=== PATIENT | female | born 1945 | race Caucasian/White ===

== ENCOUNTER 2017-10-09 15:17 | Emergency (ER) | payer MEDICARE, MEDICAID ==
[~2017-10-09] VITALS: Ht 162.6 cm; Wt 50.0 kg
[2017-10-09] MEDS ORDERED: NITROGLYCERIN 0.4MG TABLET SL SL PRN (15:45)
[2017-10-09 16:26] LABS: CHLORIDE 107 mEq/L (98-107)
[2017-10-09 16:27] LABS: BASOPHILS % 0.9 % (0.0-2.0); EOSINOPHILS % 2.5 % (0.0-5.0); HEMATOCRIT. 36.2 % (36.0-48.0); HEMOGLOBIN. 12.1 g/dL (12.0-16.0); LYMPHOCYTES % 27.9 % (20.0-50.0); MEAN CORPUSCULAR HEMOGLOBIN 29.4 pg (28.0-32.0); MEAN CORPUSCULAR VOLUME 87.9 fL (81.0-99.0); MEAN PLATELET VOLUME 7.9 fl (7.4-10.4); MONOCYTES % 5.4 % (2.0-8.0); NEUTROPHILS % 63.3 % (40.0-76.0); PLATELET 222 x1000/uL (130-400); RED BLOOD CELL COUNT 4.12 mill/uL (4.2-5.4); RED CELL DISTRIBUTION WIDTH 14.9 % (11.6-14.6)
[2017-10-09] MEDS ORDERED: ACETAMINOPHEN WITH CODEINE 300/30MG TABLET PO ONE (16:30)
[2017-10-09] MEDS ORDERED: LORAZEPAM 1MG TABLET PO ONE (17:15)
[2017-10-09] MEDS ORDERED: HYDROCODONE/ACETAMINOPHEN 5/325MG TABLET PO ONE ×2 (17:45→19:15)
[2017-10-09 19:31] VITALS: BP 115/72
== END 2017-10-09 19:32 ==
LOC: ER 15:17 → CANBEDREQ 21:38
DX: R07.89 Other chest pain (principal); I20.0 Unstable angina; G40.909 Epilepsy, unspecified, not intractable, without status epilepticus; J44.9 Chronic obstructive pulmonary disease, unspecified; F17.200 Nicotine dependence, unspecified, uncomplicated; R00.1 Bradycardia, unspecified; Z88.5 Allergy status to narcotic agent; Z88.8 Allergy status to other drugs, medicaments and biological substances
CPT/HCPCS: 36415; 71045; 80053; 83880; 84484; 85025; 93005; 99285

== ENCOUNTER 2018-01-26 11:23 | Emergency (ER) | payer MEDICARE, MEDICAID ==
[~2018-01-26] VITALS: Ht 160 cm; Wt 60.0 kg
[2018-01-26] MEDS ORDERED: HYDROCODONE/ACETAMINOPHEN 5/325MG TABLET PO ONE (12:15)
[2018-01-26] MEDS ORDERED: NITROGLYCERIN OINT 1GM/INCH UDPKT TD ONE (12:15)
[2018-01-26 13:41] LABS: BASOPHILS % 1.1 % (0.0-2.0); EOSINOPHILS % 1.7 % (0.0-5.0); HEMATOCRIT. 36.3 % (36.0-48.0); HEMOGLOBIN. 12.4 g/dL (12.0-16.0); LYMPHOCYTES % 23.4 % (20.0-50.0); MEAN CORPUSCULAR VOLUME 90.7 fL (81.0-99.0); NEUTROPHILS % 68.8 % (40.0-76.0); PLATELET 218 x1000/uL (130-400); RED CELL DISTRIBUTION WIDTH 12.9 % (11.6-14.6)
[2018-01-26 13:47] LABS: CHLORIDE 108 mEq/L (98-107)
[2018-01-26 13:50] LABS: INR 1.1; PARTIAL THROMBOPLASTIN TIME 50.1 sec (23.4-31.0)
[2018-01-26] MEDS ORDERED: LORAZEPAM 2MG/ML CPJ IV ONE ×2 (15:45)
[2018-01-26 16:21] VITALS: BP 117/67
== END 2018-01-26 16:50 | disposition short-term general hospital (02) ==
LOC: ER 11:23 → CANBEDREQ 17:21
DX: R07.89 Other chest pain (principal); I11.9 Hypertensive heart disease without heart failure; J44.9 Chronic obstructive pulmonary disease, unspecified; G40.909 Epilepsy, unspecified, not intractable, without status epilepticus; E87.8 Other disorders of electrolyte and fluid balance, not elsewhere classified; Z88.5 Allergy status to narcotic agent
CPT/HCPCS: 36415; 71045; 80053; 83880; 84484; 85025; 85610; 85730; 93005; 96374; 96376; 99285; J2060

== ENCOUNTER 2018-04-29 13:48 | Inpatient (IN) | payer MEDICARE, MEDICAID ==
[~2018-04-29] VITALS: Ht 160 cm; Wt 49.9 kg
[2018-04-29 00:30] VITALS: BP 123/53
[2018-04-29] MEDS ORDERED: SODIUM CHLORIDE 0.9% 1,000 ML IV ONE (14:07)
[2018-04-29 14:51] LABS: CLARITY URINE CLEAR (CLEAR); COLOR URINE YELLOW (YELLOW); KETONES URINE NEGATIVE (NEGATIVE); LEUKOCYTE ESTERASE URINE 2+ (NEGATIVE); NITRITE URINE POSITIVE (NEGATIVE); OCCULT BLOOD URINE 1+ (NEGATIVE); PH URINE 7.5 (4.5-8.0); PROTEIN URINE NEGATIVE (NEGATIVE); SPECIFIC GRAVITY URINE 1.013 (1.005-1.030); UROBILINOGEN URINE 0.2 E.U./dL (0.2-1.0)
[2018-04-29 15:14] LABS: BASOPHILS % 0.8 % (0.0-2.0); HEMATOCRIT. 37.4 % (36.0-48.0); HEMOGLOBIN. 12.8 g/dL (12.0-16.0); LYMPHOCYTES % 22.3 % (20.0-50.0); MEAN CORPUSCULAR VOLUME 90.9 fL (81.0-99.0); MONOCYTES % 4.3 % (2.0-8.0); NEUTROPHILS % 70.6 % (40.0-76.0); PLATELET 172 x1000/uL (130-400); RED BLOOD CELL COUNT 4.12 mill/uL (4.2-5.4); RED CELL DISTRIBUTION WIDTH 13.5 % (11.6-14.6)
[2018-04-29 15:19] LABS: CHLORIDE 106 mEq/L (98-107)
[2018-04-29 15:23] LABS: ETHANOL BLOOD < 10 mg/dL
[2018-04-29 15:29] LABS: *AMPHETAMINES SCREEN URINE NEGATIVE (NEGATIVE); *BARBITURATES SCREEN URINE NEGATIVE (NEGATIVE); *BENZODIAZEPINES SCREEN URINE NEGATIVE (NEGATIVE); *COCAINE SCREEN URINE NEGATIVE (NEGATIVE)
[2018-04-29 15:30] LABS: CANNABINOID URINE SCREEN NEGATIVE (NEGATIVE); OPIATES URINE SCREEN PRESUMTIVE POSITIVE (NEGATIVE); PHENCYCLIDINE URINE SCREEN NEGATIVE (NEGATIVE)
[2018-04-29 15:32] LABS: METHADONE URINE SCREEN NEGATIVE (NEGATIVE)
[2018-04-29] MEDS ORDERED: HYDROCODONE/ACETAMINOPHEN 10/325MG TABLET PO PRN (20:00)
[2018-04-29] MEDS: HYDROCODONE/ACETAMINOPHEN 10/325MG TABLET PO PRN (23:38)
[2018-04-29] MEDS: LORAZEPAM 2MG/ML CPJ IV PRN (23:38)
[2018-04-30] VITALS (7 sets, daily range): BP systolic 85–119; BP diastolic 32–69
[2018-04-30] MEDS: LORAZEPAM 2MG/ML CPJ IV PRN ×4 (01:59→20:19)
[2018-04-30] MEDS: HYDROCODONE/ACETAMINOPHEN 10/325MG TABLET PO PRN ×4 (03:05→17:44)
[2018-04-30] MEDS ORDERED: MELA3CAP PO (03:48)
[2018-04-30] MEDS ORDERED: CYM20 PO (03:48)
[2018-04-30] MEDS ORDERED: ONDA4TAB5 MT (03:48)
[2018-04-30] MEDS ORDERED: HYDR-4001 PO (03:48)
[2018-04-30] MEDS ORDERED: FENT1PAT2 TP (03:48)
[2018-04-30] MEDS ORDERED: DABI150C PO (03:48)
[2018-04-30] MEDS ORDERED: MIRT45TA59 MT (03:48)
[2018-04-30] MEDS ORDERED: LORA0.5T2 PO (03:48)
[2018-04-30] MEDS ORDERED: PREG50CA PO (03:48)
[2018-04-30] MEDS ORDERED: KEPP250 MT (03:48)
[2018-04-30] MEDS ORDERED: BISACODYL 10MG SUPP PR PRN (05:45)
[2018-04-30] MEDS ORDERED: BISACODYL 5MG TABLET PO PRN (05:45)
[2018-04-30] MEDS ORDERED: ONDANSETRON HCL 4MG/2ML INJ IV PRN (05:45)
[2018-04-30] MEDS ORDERED: CEFTRIAXONE 1 G PREMIX 50 ML IV SCH (06:00)
[2018-04-30] MEDS: PANTOPRAZOLE 40MG DR TABLET PO SCH (07:20)
[2018-04-30] MEDS: PREGABALIN 50 MG CAPSULE PO SCH ×2 (08:51→20:18)
[2018-04-30] MEDS: ASPIRIN 81MG TABLET PO SCH (08:51)
[2018-04-30] MEDS: LEVETIRACETAM 500MG TABLET PO SCH ×2 (08:52→20:18)
[2018-04-30] MEDS: HYDROMORPHONE HCL/PF 2MG/ML CPJ IV PRN (11:06)
[2018-04-30] MEDS: CEFTRIAXONE 1 G PREMIX 50 ML IV SCH (11:07)
[2018-04-30] MEDS ORDERED: IPRATROPIUM/ALBUTEROL 0.5-3(2.5)MG/3ML NEB HHN PRN (12:45)
[2018-04-30] MEDS ORDERED: BUDESONIDE 0.5MG/2ML NEB HHN SCH (13:00)
[2018-04-30] MEDS ORDERED: DULOXETINE HCL 20MG DR CAPSULE PO SCH (17:00)
[2018-04-30 18:18] LABS: HEMATOCRIT. 37.8 % (36.0-48.0); HEMOGLOBIN. 12.5 g/dL (12.0-16.0); MEAN CORPUSCULAR HEMOGLOBIN 30.3 pg (28.0-32.0); MEAN CORPUSCULAR VOLUME 91.9 fL (81.0-99.0); PLATELET 190 x1000/uL (130-400); RED BLOOD CELL COUNT 4.11 mill/uL (4.2-5.4); RED CELL DISTRIBUTION WIDTH 13.7 % (11.6-14.6)
[2018-04-30] MEDS ORDERED: MIRTAZAPINE 30MG TABLET PO SCH (21:00)
[2018-04-30] MEDS: IPRATROPIUM/ALBUTEROL 0.5-3(2.5)MG/3ML NEB HHN SCH (21:15)
[2018-04-30 23:35] LABS: PLATELET ESTIMATE NORMAL
[2018-05-01] VITALS: BP 136/57
[2018-05-01] MEDS: IPRATROPIUM/ALBUTEROL 0.5-3(2.5)MG/3ML NEB HHN SCH ×2 (01:17→13:41)
[2018-05-01] MEDS: HYDROMORPHONE HCL/PF 2MG/ML CPJ IV PRN ×3 (01:46→12:35)
[2018-05-01 04:00] VITALS: BP 124/62
[2018-05-01] MEDS: HYDROCODONE/ACETAMINOPHEN 10/325MG TABLET PO PRN (04:18)
[2018-05-01] MEDS: PANTOPRAZOLE 40MG DR TABLET PO SCH (04:18)
[2018-05-01] MEDS: LORAZEPAM 2MG/ML CPJ IV PRN ×2 (06:28→10:30)
[2018-05-01 08:00] VITALS: BP 133/55
[2018-05-01] MEDS: LEVETIRACETAM 500MG TABLET PO SCH (08:49)
[2018-05-01] MEDS: PREGABALIN 50 MG CAPSULE PO SCH (08:49)
[2018-05-01] MEDS: CEFTRIAXONE 1 G PREMIX 50 ML IV SCH (08:49)
[2018-05-01] MEDS: ASPIRIN 81MG TABLET PO SCH (08:50)
[2018-05-01 15:49] VITALS: BP 85/41
[2018-05-01 16:41] VITALS: BP 133/55
== END 2018-05-01 17:00 | DRG 720 ==
LOC: ER 13:48 → 6WST 18:43 → EDBEDREQ 18:46 → EDBEDREQTM 18:46 → EDBEDREQ 20:50 → ENRESERV 22:49
PROVIDERS: ADMIT Internal Medicine; ATTEND Internal Medicine
DX: A41.9 Sepsis, unspecified organism (principal); G93.41 Metabolic encephalopathy; J44.9 Chronic obstructive pulmonary disease, unspecified; G40.909 Epilepsy, unspecified, not intractable, without status epilepticus; Z78.1 Physical restraint status; N39.0 Urinary tract infection, site not specified; I10 Essential (primary) hypertension; F17.210 Nicotine dependence, cigarettes, uncomplicated; I25.10 Atherosclerotic heart disease of native coronary artery without angina pectoris; B96.20 Unspecified Escherichia coli [E. coli] as the cause of diseases classified elsewhere; Z88.8 Allergy status to other drugs, medicaments and biological substances
CPT/HCPCS: 36415; 71045; 80048; 80305; 82962; 83605; 83880; 84484; 85007; 85027; 87077; 87186; 93005; 96360; 99285; G0482; J0696; J1170; J2060; J2405; J7030; J7620; J7626

== ENCOUNTER 2019-05-06 22:30 | Inpatient (IN) | payer MEDICARE, MEDICAID ==
[~2019-05-06] VITALS: Ht 160 cm; Wt 65.8 kg
[2019-05-06 10:57] VITALS: BP 96/51
[~2019-05-06 22:30] MED LIST: CYM20 PO; DABI150C PO; FENT1PAT2 TP; HYDR-4001 PO; KEPP250 MT; LORA0.5T2 PO; MELA3CAP PO; MIRT45TA59 MT; ONDA4TAB5 MT; PREG50CA PO
[2019-05-06 22:40] VITALS: BP 96/51
[2019-05-07] MEDS ORDERED: CLON1PAT12 TP (00:32)
[2019-05-07] MEDS ORDERED: BISA10SU62 RC (00:32)
[2019-05-07] MEDS ORDERED: NA P230E RC (00:32)
[2019-05-07] MEDS ORDERED: APIX5TAB PO (00:32)
[2019-05-07] MEDS ORDERED: GABA-531 PO (00:32)
[2019-05-07] MEDS ORDERED: RISP1TAB26 PO (00:37)
[2019-05-07] MEDS ORDERED: XALAO EACHEYE (00:37)
[2019-05-07] MEDS ORDERED: MIRT15TA6 PO (00:37)
[2019-05-07] MEDS ORDERED: ACETAMINOPHEN 325MG TABLET PO PRN (02:15)
[2019-05-07] MEDS ORDERED: CLONIDINE 0.1MG TABLET PO PRN (02:15)
[2019-05-07] MEDS ORDERED: LORAZEPAM 0.5MG TABLET PO PRN (02:15)
[2019-05-07] MEDS ORDERED: IPRATROPIUM/ALBUTEROL 0.5-3(2.5)MG/3ML NEB HHN PRN (02:15)
[2019-05-07] MEDS ORDERED: HYDROCODONE/ACETAMINOPHEN 5/325MG TABLET PO PRN (02:15)
[2019-05-07 04:00] VITALS: BP 119/51
[2019-05-07 08:00] VITALS: BP 106/46
[2019-05-07] MEDS: LORAZEPAM 0.5MG TABLET PO PRN ×3 (09:23→21:27)
[2019-05-07] MEDS ORDERED: PREGABALIN 50 MG CAPSULE PO SCH (09:45)
[2019-05-07] MEDS: IPRATROPIUM/ALBUTEROL 0.5-3(2.5)MG/3ML NEB HHN SCH ×3 (09:47→19:52)
[2019-05-07] MEDS: DULOXETINE HCL 30MG DR CAPSULE PO SCH ×3 (10:24→21:26)
[2019-05-07] MEDS: GABAPENTIN 300MG CAPSULE PO SCH ×3 (10:25→21:26)
[2019-05-07] MEDS: RISPERIDONE 1MG TABLET PO SCH ×2 (10:25→21:26)
[2019-05-07] MEDS: LEVETIRACETAM 250MG TABLET PO SCH ×2 (10:25→21:26)
[2019-05-07] MEDS: APIXABAN 5 MG TABLET PO SCH ×2 (10:25→16:42)
[2019-05-07] MEDS ORDERED: CLONIDINE HCL 0.1MG/24HR PATCH TD SCH (10:30)
[2019-05-07 11:29] LABS: BASOPHILS % 0.9 % (0.0-2.0); EOSINOPHILS % 1.8 % (0.0-5.0); HEMATOCRIT. 35.5 % (36.0-48.0); HEMOGLOBIN. 12.2 g/dL (12.0-16.0); LYMPHOCYTES % 22.6 % (20.0-50.0); MEAN CORPUSCULAR HEMOGLOBIN 31.2 pg (28.0-32.0); MEAN CORPUSCULAR VOLUME 90.9 fL (81.0-99.0); MEAN PLATELET VOLUME 8.2 fl (7.4-10.4); MONOCYTES % 4.7 % (2.0-8.0); PLATELET 183 x1000/uL (130-400); RED CELL DISTRIBUTION WIDTH 12.9 % (11.6-14.6)
[2019-05-07 11:48] LABS: CHLORIDE 107 mEq/L (98-107)
[2019-05-07 11:54] VITALS: BP 122/61
[2019-05-07] MEDS: HYDROCODONE/ACETAMINOPHEN 5/325MG TABLET PO PRN ×2 (14:29→19:00)
[2019-05-07] MEDS ORDERED: METHYLPREDNISOLONE SOD SUCC 125 MG/2 ML VIAL IV NR (15:30)
[2019-05-07 16:00] VITALS: BP 117/50
[2019-05-07] MEDS: BUDESONIDE 0.5MG/2ML NEB HHN SCH (19:52)
[2019-05-07 20:00] VITALS: BP 113/55
[2019-05-07] MEDS: LATANOPROST 0.005% OPHTH DROPS 2.5ML BOTHEYE SCH (21:26)
[2019-05-07] MEDS: GUAIFENESIN 600MG ER TABLET PO SCH (21:26)
[2019-05-07] MEDS: MIRTAZAPINE 15MG TABLET PO SCH (21:26)
[2019-05-07] MEDS: FLUTICASONE PROPIONATE 50MCG/SPRAY BOTTLE BOTHNSTRLS SCH (21:27)
[2019-05-08] VITALS: BP 113/59
[2019-05-08] MEDS: IPRATROPIUM/ALBUTEROL 0.5-3(2.5)MG/3ML NEB HHN SCH ×4 (02:30→21:30)
[2019-05-08] MEDS: HYDROCODONE/ACETAMINOPHEN 5/325MG TABLET PO PRN ×5 (02:43→20:43)
[2019-05-08 04:00] VITALS: BP 100/45
[2019-05-08] MEDS: GABAPENTIN 300MG CAPSULE PO SCH ×3 (06:25→22:08)
[2019-05-08] MEDS: LORAZEPAM 0.5MG TABLET PO PRN ×3 (06:25→19:42)
[2019-05-08] MEDS: DULOXETINE HCL 30MG DR CAPSULE PO SCH ×3 (06:25→22:08)
[2019-05-08] MEDS: BUDESONIDE 0.5MG/2ML NEB HHN SCH ×2 (07:43→21:30)
[2019-05-08] MEDS: LEVETIRACETAM 250MG TABLET PO SCH ×2 (08:05→21:36)
[2019-05-08] MEDS: FLUTICASONE PROPIONATE 50MCG/SPRAY BOTTLE BOTHNSTRLS SCH ×2 (08:05→21:35)
[2019-05-08] MEDS: RISPERIDONE 1MG TABLET PO SCH ×2 (08:05→21:36)
[2019-05-08] MEDS: APIXABAN 5 MG TABLET PO SCH ×2 (08:05→16:17)
[2019-05-08] MEDS: GUAIFENESIN 600MG ER TABLET PO SCH ×2 (08:05→21:36)
[2019-05-08 08:12] VITALS: BP 145/64
[2019-05-08 10:23] LABS: CLARITY URINE CLEAR (CLEAR); COLOR URINE YELLOW (YELLOW); KETONES URINE NEGATIVE (NEGATIVE); LEUKOCYTE ESTERASE URINE 2+ (NEGATIVE); NITRITE URINE POSITIVE (NEGATIVE); OCCULT BLOOD URINE 1+ (NEGATIVE); PH URINE 6.5 (4.5-8.0); PROTEIN URINE NEGATIVE (NEGATIVE); SPECIFIC GRAVITY URINE 1.009 (1.005-1.030); UROBILINOGEN URINE 0.2 E.U./dL (0.2-1.0)
[2019-05-08 12:15] VITALS: BP 113/56
[2019-05-08] MEDS: LEVOFLOXACIN 500MG TABLET PO SCH (13:03)
[2019-05-08 16:25] VITALS: BP 117/56
[2019-05-08 20:04] VITALS: BP 123/55
[2019-05-08] MEDS: LATANOPROST 0.005% OPHTH DROPS 2.5ML BOTHEYE SCH (21:35)
[2019-05-08] MEDS: MIRTAZAPINE 15MG TABLET PO SCH (21:36)
[2019-05-09] VITALS: BP 117/39
[2019-05-09] MEDS: IPRATROPIUM/ALBUTEROL 0.5-3(2.5)MG/3ML NEB HHN SCH ×3 (01:38→15:18)
[2019-05-09 04:00] VITALS: BP 110/51
[2019-05-09] MEDS: GABAPENTIN 300MG CAPSULE PO SCH ×2 (05:21→14:28)
[2019-05-09] MEDS: DULOXETINE HCL 30MG DR CAPSULE PO SCH ×2 (05:21→14:28)
[2019-05-09] MEDS: HYDROCODONE/ACETAMINOPHEN 5/325MG TABLET PO PRN ×3 (05:25→14:29)
[2019-05-09 08:00] VITALS: BP 104/46
[2019-05-09] MEDS: BUDESONIDE 0.5MG/2ML NEB HHN SCH (08:30)
[2019-05-09] MEDS: LEVETIRACETAM 250MG TABLET PO SCH (08:45)
[2019-05-09] MEDS: FLUTICASONE PROPIONATE 50MCG/SPRAY BOTTLE BOTHNSTRLS SCH (08:45)
[2019-05-09] MEDS: LORAZEPAM 0.5MG TABLET PO PRN ×2 (08:45→16:14)
[2019-05-09] MEDS: RISPERIDONE 1MG TABLET PO SCH (08:45)
[2019-05-09] MEDS: APIXABAN 5 MG TABLET PO SCH ×2 (08:45→16:14)
[2019-05-09] MEDS: GUAIFENESIN 600MG ER TABLET PO SCH (08:45)
[2019-05-09] MEDS: LEVOFLOXACIN 500MG TABLET PO SCH (10:15)
[2019-05-09 12:00] VITALS: BP 105/48
[2019-05-09 16:00] VITALS: BP 114/68
[2019-05-09 17:45] VITALS: BP 123/59
== END 2019-05-09 19:17 | DRG 871 ==
LOC: 5WST 22:30
PROVIDERS: ADMIT Internal Medicine Critical Care Medicine; ATTEND Internal Medicine Critical Care Medicine
DX: A41.9 Sepsis, unspecified organism (principal); J96.00 Acute respiratory failure, unspecified whether with hypoxia or hypercapnia; F11.20 Opioid dependence, uncomplicated; N39.0 Urinary tract infection, site not specified; F32.9 Major depressive disorder, single episode, unspecified; F41.9 Anxiety disorder, unspecified; G40.909 Epilepsy, unspecified, not intractable, without status epilepticus; G89.29 Other chronic pain; I10 Essential (primary) hypertension; J06.9 Acute upper respiratory infection, unspecified; J44.9 Chronic obstructive pulmonary disease, unspecified; Z86.711 Personal history of pulmonary embolism; Z88.8 Allergy status to other drugs, medicaments and biological substances; Z79.01 Long term (current) use of anticoagulants; Z79.899 Other long term (current) drug therapy
CPT/HCPCS: 36415; 71045; 80048; 81003; 85025; 93970; 94640; 97162; A6261; J2930; J7620; J7626

== ENCOUNTER 2020-02-19 19:50 | Emergency (ER) | payer MEDICARE, MEDICAID, OTHER ==
[~2020-02-19] VITALS: Ht 165.1 cm; Wt 59.0 kg
[~2020-02-19 19:50] MED LIST changes: +APIX5TAB PO; +BISA10SU62 RC; +CLON1PAT12 TP; -DABI150C PO; -FENT1PAT2 TP; +GABA-531 PO; +MIRT15TA6 PO; +NA P230E RC; -PREG50CA PO; +RISP1TAB26 PO; +XALAO EACHEYE
[2020-02-19] MEDS ORDERED: NITROGLYCERIN OINT 1GM/INCH UDPKT TD ONE (22:15)
[2020-02-19] MEDS ORDERED: ASPIRIN 81MG TABLET PO ONE (22:15)
[2020-02-19 23:20] LABS: BASOPHILS % 0.8 % (0.0-2.0); CHLORIDE 107 mEq/L (98-107); EOSINOPHILS % 1.1 % (0.0-5.0); HEMATOCRIT. 40.1 % (36.0-48.0); HEMOGLOBIN. 13.6 g/dL (12.0-16.0); LYMPHOCYTES % 23.5 % (20.0-50.0); MEAN CORPUSCULAR HEMOGLOBIN 30.6 pg (28.0-32.0); MEAN CORPUSCULAR VOLUME 90.3 fL (81.0-99.0); MEAN PLATELET VOLUME 8.4 fl (7.4-10.4); MONOCYTES % 4.6 % (2.0-8.0); PLATELET 202 x1000/uL (130-400); RED BLOOD CELL COUNT 4.44 mill/uL (4.2-5.4); RED CELL DISTRIBUTION WIDTH 13.4 % (11.6-14.6)
[2020-02-19 23:27] LABS: PROTHROMBIN TIME 10.1 sec (9.6-11.0)
[2020-02-20] MEDS ORDERED: LORAZEPAM 2MG/ML CPJ IV ONE (02:00)
[2020-02-20 03:04] VITALS: BP 108/42
== END 2020-02-20 03:43 | disposition short-term general hospital (02) ==
LOC: ER 19:50 → CANBEDREQ 02-20 07:24
DX: R07.89 Other chest pain (principal); I11.9 Hypertensive heart disease without heart failure; J44.9 Chronic obstructive pulmonary disease, unspecified; R10.13 Epigastric pain; R11.0 Nausea; Z88.8 Allergy status to other drugs, medicaments and biological substances; Z79.899 Other long term (current) drug therapy
CPT/HCPCS: 36415; 71045; 80053; 83880; 84484; 85025; 85610; 93005; 96374; 99285; J2060